=== PATIENT | male | born 1980 | race Two or more races ===

== ENCOUNTER 2019-05-16 22:03 | Emergency (ER) | payer SELFPAY ==
[~2019-05-16] VITALS: Ht 182.9 cm; Wt 124.7 kg
[2019-05-16 22:26] VITALS: BP 146/83
== END 2019-05-16 23:10 | disposition left against medical advice (07) ==
LOC: ER 22:06
DX: R51 Headache (principal); K04.7 Periapical abscess without sinus; Z53.21 Procedure and treatment not carried out due to patient leaving prior to being seen by health care provider